=== PATIENT | male | born 1995 | race African-American/Black ===

== ENCOUNTER 2020-04-09 17:42 | Emergency (ER) | payer OTHER ==
[2020-04-09 17:49] VITALS: BP 130/68
--- NOTE | 2020-04-09 18:07 | ED Physician Documentation ---
History of Present Illness - Stated complaint Stated Complaint: FEVER - Chief complaint Chief Complaint: Fever - History obtained from History obtained from: Patient - History of Present Illness Timing: Prior to arrival - Additonal information Additional information: This is a well-appearing and well feeling 24-year-old gentleman that presents to the emergency department for evaluation of reported fever. He is in the [place] and when he was reporting to duty this afternoon a routine temperature therefore his chief requested he come to the ER to get a COVID test. Patient denies feeling ill. He has no cough, congestion, sore throat, runny nose, loss of taste or smell, no abdominal pain, no nausea, vomiting, headache, back pain, rash. 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 When he returned he has been out and about shopping and sometimes going to restaurants but reports that he always wears a mask. Showed him to be 38 degrees. He attempted to follow-up with [facility] but they were closed. Review of Systems Constitutional: reports: Reviewed and negative Eyes: reports: Reviewed and negative Ears: reports: Reviewed and negative Nose: reports: Reviewed and negative Throat: reports: Reviewed and negative Cardiac: reports: Reviewed and negative Respiratory: reports: Reviewed and negative GI: reports: Reviewed and negative : reports: Reviewed and negative Skin: reports: Reviewed and negative Musculoskeletal: reports: Reviewed and negative Neurologic: reports: Reviewed and negative Psychiatric: reports: Reviewed and negative Endocrine: reports: Reviewed and negative PD PAST MEDICAL HISTORY - Present Medications Home Medications: Ambulatory Orders Medication Instructions Recorded Confirmed No Known Home Medications 04/09/20 04/09/20 - Allergies Allergies/Adverse Reactions: Allergies Allergy/AdvReac Type Severity Reaction Status Date / Time No Known Drug Allergies Allergy Verified 04/09/20 17:44 PD ED PE NORMAL - General General: Alert and oriented X 3, No acute distress - HEENT HEENT: PERRL - Neck Neck: Supple, no meningeal sign - Cardiac Cardiac: RRR, No murmur - Respiratory Respiratory: Clear bilaterally - Abdomen Abdomen: Normal bowel sounds, Soft, Non tender, Non distended - Derm Derm: Warm and dry - Extremities Extremities: No deformity - Neuro Neuro: Alert and oriented X 3 Results - Vitals Vitals: Vital Signs - 24 hr 04/09/20 17:45 Temperature 37.1 C Heart Rate 90 Respiratory 16 Rate Blood Pressure 130/68 O2 Saturation 100 Oxygen O2 Source Room air PD MEDICAL DECISION MAKING - ED course Complexity details: considered differential, d/w patient ED course: 24-year-old male presents to the emergency department for evaluation of fever measured at 38 C when he is reporting for duty this evening on [employer] base. He has no complaints otherwise and is unremarkable in appearance and exam. We will complete COVID-19 screening. Patient is advised to remain in quarantine until the results are known. Departure - Departure Disposition: 01 Home, Self Care Clinical Impression: Encounter for screening laboratory testing for COVID-19 virus Condition: Stable Record reviewed to determine appropriate education?: Yes Comments: We have completed COVID-19 screening on you today. It may take 48 hours until we know the results. We will not call you unless the results are positive. You can sign up online through [employer] to review your results if you would like. You must remain in quarantine until your results are known. Most people that develop COVID 19 infection will heal well. The only reason to return to the emergency department is if your symptoms are life-threatening and cannot be managed well at home
== END 2020-04-09 18:15 | disposition home or self-care (01) ==
LOC: ED 17:42
DX: R50.9 Fever, unspecified (principal); Z20.828 Contact with and (suspected) exposure to other viral communicable diseases
CPT/HCPCS: 99281; 99283

== ENCOUNTER 2021-07-27 17:52 | Emergency (ER) | payer OTHER ==
[2021-07-27 18:06] VITALS: BP 131/82
[2021-07-27 18:25] LABS: RAPID STREP SCREEN Negative (Negative)
--- NOTE | 2021-07-27 18:38 | ED Physician Documentation ---
History of Present Illness - Stated complaint Stated Complaint: SORE THROAT/HEADACHE/CHILLS - Chief complaint Chief Complaint: Resp - History obtained from History obtained from: Patient - Additonal information Additional information: DaysPatient comes emergency department chief complaint of sore throat and nasal congestion is been going on for the last. Patient states that he has a sharp pain in his lower throat hurts when he swallows, especially cold liquids. No fevers or chills. Patient states a bunch of his coworkers had similar symptoms. No other complaints at this time. Patient is vaccinated for COVID. Review of Systems Ten Systems: 10 systems reviewed and negative Constitutional: reports: Myalgias Eyes: reports: Reviewed and negative Ears: reports: Reviewed and negative Nose: reports: Rhinorrhea / runny nose, Congestion Throat: reports: Sore throat Cardiac: reports: Reviewed and negative Respiratory: reports: Reviewed and negative GI: reports: Reviewed and negative : reports: Reviewed and negative Skin: reports: Reviewed and negative Musculoskeletal: reports: Reviewed and negative Neurologic: reports: Reviewed and negative Psychiatric: reports: Reviewed and negative Endocrine: reports: Reviewed and negative Immunocompromised: reports: Reviewed and negative PD PAST MEDICAL HISTORY - Past Medical History Past Medical History: No - Past Surgical History Past Surgical History: No - Present Medications Home Medications: Ambulatory Orders Medication Instructions Recorded Confirmed No Known Home Medications 04/09/20 07/27/21 - Allergies Allergies/Adverse Reactions: Allergies Allergy/AdvReac Type Severity Reaction Status Date / Time No Known Drug Allergies Allergy Verified 07/27/21 18:06 - Social History Does the pt smoke?: No Smoking Status: Never smoker Does the pt drink ETOH?: Yes Does the pt have substance abuse?: No - Immunizations Immunizations are current?: Yes - POLST Patient has POLST: No PD ED PE NORMAL - Vitals Vital signs reviewed: Yes - General General: Alert and oriented X 3, No acute distress, Well developed/nourished - HEENT HEENT: Atraumatic, PERRL, EOMI, Moist mucous membranes, Pharynx benign - Neck Neck: Other (Mild bilateral anterior cervical lymphadenopathy.) - Cardiac Cardiac: RRR, No murmur, Strong equal pulses - Respiratory Respiratory: No respiratory distress, Clear bilaterally - Abdomen Abdomen: Soft, Non tender, Non distended - Derm Derm: Normal color, Warm and dry, No rash - Extremities Extremities: No deformity, No edema - Neuro Neuro: Alert and oriented X 3, weatherization specialist 2-12 intact, Normal speech - Psych Psych: Normal mood, Normal affect Results - Vitals Vitals: Vital Signs - 24 hr 07/27/21 18:02 Temperature 37.4 C Heart Rate 98 Respiratory 18 Rate Blood Pressure 131/82 H O2 Saturation 98 Oxygen O2 Source Room air - Labs Labs: Laboratory Tests 07/27/21 18:10 Group A Strep Rapid Negative PD MEDICAL DECISION MAKING - ED course Complexity details: reviewed results, re-evaluated patient, considered differential, d/w patient ED course: Patient was worked up with strep test and COVID test. Strep was negative. Patient was advised that he most likely has a viral upper respiratory infection and pharyngitis. He is advised to quarantine until his COVID test comes back. He has been given a work note for couple days and we have discussed symptomatic treatment. Departure - Departure Disposition: Home, Self Care Clinical Impression: Upper respiratory infection Qualifiers: URI type: unspecified viral URI Qualified Code(s): J06.9 - Acute upper respiratory infection, unspecified Pharyngitis Qualifiers: Pharyngitis/tonsillitis etiology: unspecified etiology Qualified Code(s): J02.9 - Acute pharyngitis, unspecified Condition: Stable Instructions: ED Viral Syndrome, ED Pharyngitis Viral Comments: Your strep test is negative. You most likely have one of the many viruses that are going around and causing upper respiratory symptoms right now. You have a COVID test pending at this time. We will call you if you have a positive test; however, if you have a negative test, we do not call this back. As such, the best way to get your negative results is to go to our hospital website at [email or web address], click on the "[email or web address]" tab and sign up for the patient portal. Until you have confirmation of negative COVID test, please quarantine at home. Forms: Activity restrictions
== END 2021-07-27 18:44 | disposition home or self-care (01) ==
LOC: ED 17:52
DX: U07.1 COVID-19 (principal); J06.9 Acute upper respiratory infection, unspecified; J02.9 Acute pharyngitis, unspecified
CPT/HCPCS: 87070; 87430; 99282; 99283

== ENCOUNTER 2022-06-01 08:57 | Outpatient (CLI) | payer OTHER ==
--- NOTE | 2022-06-01 11:19 | XRAY Report ---
PROCEDURE: Finger(s) RT INDICATIONS: R THUMB PX TECHNIQUE: AP hand, 3 views of the first finger(s) acquired. COMPARISON: None FINDINGS: Bones: No fractures or dislocations. No suspicious bony lesions. Soft tissues: No suspicious soft tissue calcifications. IMPRESSION: No displaced fracture is identified. If there is high concern for occult injury, consider repeat radi ography or cross-sectional imaging. Reviewed by: Efe Umaña MD on 06/01/2022 11:18 AM [facility] Approved by: Efe Umaña MD on 06/01/2022 11:18 AM PST Station ID: [id number]
== END 2022-06-01 08:58 | disposition home or self-care (01) ==
LOC: DI.N 08:57
PROVIDERS: ATTEND Nurse Practitioner
DX: S69.91XA Unspecified injury of right wrist, hand and finger(s), initial encounter (principal)

== ENCOUNTER 2023-02-12 13:20 | Outpatient (CLI) | payer OTHER ==
--- NOTE | 2023-02-12 14:00 | Sleep Patient Instructions ---
Sleep Center Visit Summary - Patient Visit Information Reason for Visit: Initial consult for evaluation of sleep disordered breathing and other sleep issues. - Patient Instructions Instructions Attached: Sleep Study, Sleep Clinic Visit, Sleep Study Home Monitor Additional Instructions: You will be completing a sleep study, either an in-lab polysomnography (PSG) or home sleep study (HST). You will follow-up in the sleep care office after the sleep study is completed to hear the results and talk about therapy, if needed. You will be called by our office staff to schedule this appointment, but you may contact us with any questions. - Clinic Information Contact: [facility] [address] [place] [address] [email or web address] T: [phone]
--- NOTE | 2023-02-12 14:05 | SLEEP CARE CONSULTATION ---
Information from patient questionnaire entered by Preeti Simeon. I have reviewed and concur with the information entered by Preeti Simeon. This document represents the service I personally performed and the decisions made by me, Jackelin Montes De Oca ARNP. History of Present Illness Service Date and Time: 02/12/2023 1320 Reason for Visit: New patient Chief Complaint: reports: Snoring, Observed pauses in breathing, Fatigue, Frequent awakenings at night Date of Onset: 3+YRS Usual bedtime: 10PM-3AM Time it takes to fall asleep: VARIES; work schedule changes when he gets off; 10 PM to 3 AM Snores at night: Yes Observed to quit breathing while asleep: Yes Sleeps alone due to snoring: No Number of times waking at night: 1-2 Reasons for waking at night: reports: Snoring, Gasping for air, Pain, Bathroom. denies: Choking Toss, Turn, or Twitch while sleeping: Yes Recalls having dreams: No Usually gets out of bed at: VARIES; 9-10 AM Feels refreshed in the morning: No Morning headache: No Sleepy or fatigued during the day: Yes Ever fallen asleep while driving: No Takes day naps: Yes (nap at work if able, 30-60 mins; fall asleep in front of TV, 2 hours someti) Dreams during day naps: No Prior sleep studies: No Additional HPI information: I had the pleasure of seeing SAL BANGURA today regarding the possibility of him having a sleep disorder. His current complaints are fatigue, frequent night awakenings, observed pauses in breathing and snoring. He has been in therapy and was talking to his therapist thought he may have sleep apnea. He was referred by his PCP. He has loud snoring and has woke himself up. His has also told him that he snores loudly and that he will stop breathing as well. He has woke himself up gasping for air but the last time was about a month ago. 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 He does not wake up feeling refreshed usually and is tired through the day. He will take a nap at work during his break if able, sometimes as much as an hour. He will also fall asleep when watching TV at home and sitting on his comfortable couch. - Parasomnia Symptoms Ever been unable to move upon waking from sleep: Yes (first time in 2019, after very long shift at work; occ since then) Walks in sleep: No Talks in sleep: No Ever acted out dreams in sleep: No Ever felt weak in the knees when startled or emotional: No Bothered by creepy, crawly, restless sensations in legs: No Problems with memory or concentration: Yes (both) Subjective Initial Organ Sleepiness Scale score: 17 (02/12/23) Past Medical History Past Medical History: reports: Anxiety (post adjustment disorder), Depression, Other Social History The patient's occupation is a AM. Patient is and lives in [place]. Have you smoked in the past 12 months: No Cigarettes per day (20/pack): 10 Years of smokin (NOW VAPES) Quit date: 2018 Smoking Pack Years: 2.0 Alcohol use: Yes Alcohol amount and frequency: 4-5 GLASSES EVERY WEEKEND Caffeine use: Yes Caffeine amount and frequency: 3-4 TIMES EVERYDAY IN THE AM 3-4 LATER IN THE DAY Family History Family history of sleep disordered breathing: Yes Family Hx Sleep Apnea: Mother: Snoring Allergies and Home Medications Known drug allergies: No Drug allergies reviewed: Yes Home medication list reviewed: Yes (no daily medications; in therapy for anx/dep) Allergy and home medication list: Allergies No Known Drug Allergies Allergy (Verified 02/11/23 14:12) Review of Systems Weight gain over past 5 years: 30, up on weight right now Weight loss over past 5 years: 30 Cardiovascular: denies: high blood pressure Respiratory: denies: shortness of breath Gastrointestinal: denies: heartburn Neurological: reports: head trauma (as a kid, 2 concussions). denies: headaches Psychiatric: reports: anxiety, depression Ear/Nose/Throat: reports: wisdom teeth removed. denies: injury to nose, tonsillectomy Musculoskeletal: reports: joint pain, back pain Physical Exam Vital signs obtained and entered by: PREETI Anglin MA Blood Pressure: 136/80 (LEFT ARM) Cuff size: regular Heart Rate: 86 O2 Saturation: 98 Height: 5 ft 7 in Weight: 220 lb 6.4 oz Body Mass Index: 34.4 BMI Classification: Obese Neck circumference: 17 Mouth and throat: narrow oropharynx Soft palate: long Hard palate: normal Uvula: normal Uvula visualization: 25% Mallampati Class III Tongue: enlarged in size with teeth todd on lateral edges Tonsils: 1+ Neck: normal w/o lymphadenopathy or thyromegaly Heart: regular rate and rhythm Lungs: clear bilaterally Impression and Plan 1. Suspected Obstructive Sleep Apnea-Hypopnea Syndrome, as suggested by a history of loud and irregular snoring, observed cessation of breath while asleep, gasping or choking in sleep, frequent awakening during the night, unrefreshed sleep, cognitive impairment, and excessive daytime sleepiness. Narrow oropharynx and obesity are common predisposing factors for obstructive sleep apnea-hypopnea syndrome. I recommend proceeding to polysomnography to confirm the diagnosis and to assess severity. If the patient has significant sleep disordered breathing, a manual CPAP titration study will also be performed to find the optimal treatment pressure. I informed the patient of what the sleep studies involve and after some discussion, obtained agreement to proceed. The pathophysiology of obstructive sleep apnea-hypopnea syndrome was discussed with the patient and health risks of cardiovascular and cerebrovascular disease if not treated. Risks of drowsy driving discussed in detail and patient advised to avoid long distance driving and to pulling unit floorhand at the first sign of drowsiness. Patient agreed to plan. * Schedule polysomnography * Avoid long distance driving or driving when feeling sleepy. * Avoid alcohol, sedative and muscle relaxant around bedtime. * Attempt to lose weight. * Review instructions provided by trained office staff on how to prepare for the sleep study. * Return for follow-up after sleep study completed. Counseling Topics: Weight loss health impact Visit Type: In Office Time Spent with Patient (minutes): 32 Provider Statement: I spent 100% of the Face to Face Visit with the patient with greater than 50% spent counseling the patient and coordination of care.
[2023-02-12 14:07] VITALS: BP 136/80
== END 2023-02-12 13:21 | disposition home or self-care (01) ==
LOC: SC 13:20
PROVIDERS: ATTEND Nurse Practitioner Family
DX: R06.83 Snoring (principal); G47.8 Other sleep disorders; R06.81 Apnea, not elsewhere classified; G47.10 Hypersomnia, unspecified; R53.83 Other fatigue; F32.A Depression, unspecified; E66.9 Obesity, unspecified; Z68.34 Body mass index [BMI] 34.0-34.9, adult; F17.290 Nicotine dependence, other tobacco product, uncomplicated
CPT/HCPCS: 99203; 99212

== ENCOUNTER 2023-03-26 08:46 | Outpatient (CLI) | payer OTHER | END 2023-03-26 08:47 | disposition home or self-care (01) | LOC: SC 08:46 | PROVIDERS: ATTEND Nurse Practitioner Family | DX: G47.33 Obstructive sleep apnea (adult) (pediatric) (principal); R09.02 Hypoxemia; E66.9 Obesity, unspecified; Z68.34 Body mass index [BMI] 34.0-34.9, adult | CPT/HCPCS: 95806 ==

== ENCOUNTER 2023-04-27 09:04 | Outpatient (CLI) | payer OTHER ==
--- NOTE | 2023-04-27 09:52 | Sleep Patient Instructions ---
Sleep Center Visit Summary - Patient Visit Information Reason for Visit: Sleep Study Followup - Patient Instructions Instructions Attached: CPAP Dc, CPAP Additional Instructions: You are being started on CPAP therapy with pressure setting at 4-15 cmH2O. You will need to call the sleep care office to set up your follow up once you have your APAP machine and we will schedule a visit to check compliance and response to therapy at that time. You may call the office with any concerns about pressure feeling too low or too much for adjustment, if needed. You should contact DME supplier for any questions or concerns about mask or equipment. Please call office to schedule a follow up appointment in the sleep care office one month after obtaining new device. - Clinic Information Contact: [facility] [address] [place] [address] [email or web address] T: [phone]
--- NOTE | 2023-04-27 09:55 | SLEEP CARE CONSULTATION ---
Information from patient questionnaire entered by Preeti Simeon. I have reviewed and concur with the information entered by Preeti Simeon. This document represents the service I personally performed and the decisions made by me, Jackelin Montes De Oca ARNP. History of Present Illness Service Date and Time: 04/27/2023903 Initial Lamar Sleepiness Scale score: 17 (02/12/23) Current Lamar Sleepiness Scale score: 20 Additional HPI information: SAL BANGURA returns for follow up and results of the recently performed home sleep study. Her sleep study showed mild obstructive sleep apnea with an average AHI of 6.2 and john oxygen saturation of 89%. I explained the pathophysiology behind obstructive sleep apnea. We then spent quite a bit of time discussing different treatment options. For mild obstructive sleep apnea, surgery and oral appliance are alternatives to nasal CPAP therapy but in moderate or severe cases, nasal CPAP is the most effective and reliable treatment. Because apnea is primarily in supine position, then positional management therapy could be effective. Methods discussed such as positioning with pillows, using a T-shirt with tennis balls in the back or commercial products that have a pillow format on back to prevent supine sleep. I reviewed the impact of weight changes on sleep apnea and strongly recommended losing weight. After some discussion, the patient opted to go with the nasal CPAP therapy. Nasal autoCPAP set at 4-15 cmH20 will be ordered with rationale explained. A manual titration study will be ordered if unable to find optimal pressure with office adjustments. I explained how CPAP machine works and what to expect when using the machine. Using CPAP every night in order to get used to it was emphasized. Patient advised to put CPAP mask on before getting into bed so as not to fall asleep without CPAP. To assist acclimation to CPAP use, it could also be used for a short time during day while reading or watching TV. The patient was instructed to call the CPAP supplier to discuss any mechanical problem that may occur. If the mask given is uncomfortable or is difficult to keep on through the night even with adjustment, contact the CPAP supplier as many will replace with ano ther mask style if notified before 30 days. If snoring or perceives is not getting enough air or too much air from the machine, notify this office. Patient counseled not drink alcohol less than 4 hours before bedtime as it can increase snoring and apnea. Patient was cautioned about risks of drowsy driving until sleepiness symptoms resolve. Patient denies drowsy driving. Sleep Study - Results Type of Sleep Study: Home sleep study (COMPLETED 03/26/23) Prior sleep studies: No Polysomnography/Home Sleep Study results: Physician Impression: The quality of the study is good. The length of the study is adequate (> 240 minutes). Please also see the tabulated and graphic data. 1. Obstructive Sleep Apnea-Hypopnea (ICD-10 G47.33), mild, with an AHI of 6.2/hr and john SaO2 of 89%. During the study, the patient had 7 apneas (7 obstructive, 0 central, 0 mixed) and 30 hypopneas. The longest episode lasted 103.5 seconds. The respiratory events occurred almost exclusively during supine sleep (supine AHI was 9.1 and non-supine, 2.36). 2. Hypoxemia (ICD-10 R09.02), minimal, with the lowest oxygen saturation of 89 % and 0.1 minutes with SaO2 under 90%. Baseline oxygen saturation was normal (Average oxygen saturation was 94%). Allergies and Home Medications Known drug allergies: No Drug allergies reviewed: Yes Home medication list reviewed: Yes (no changes) Allergy and home medication list: Allergies No Known Drug Allergies Allergy (Verified 04/26/23 08:53) Review of Systems Review of systems same as previous: Yes (no changes) Physical Exam Vital signs obtained and entered by: Jackelin Liz NP Blood Pressure: 144/107 (nervous today) Cuff size: wrist Heart Rate: 87 O2 Saturation: 99 Height: 5 ft 7 in Weight: 223 lb 3.2 oz Body Mass Index: 34.9 BMI Classification: Obese Impression and Plan 1. Obstructive Sleep Apnea-Hypopnea Syndrome, mild, with lowest oxygen saturation of 89%. Obviously this is the cause of the patients symptoms of unrefreshed sleep, and excessive daytime sleepiness. Positive pressure therapy could benefit anxiety and depression. As mentioned above, the patient will be started on nasal autoCPAP therapy with pressure set at 4-15 cmH2O. A manual titration study will be completed if unable to find optimal treatment pressure with office adjustments. Compliance guidelines also reviewed. A copy of compliance guidelines will be given for reference at check out. Because the apnea is more severe supine, I instructed to avoid sleeping supine using pillow positioning until able to start CPAP use. 2. Obesity, unspecified. Currently patients BMI is 34.9. Obesity increases the risk of apnea, CPAP pressure requirements and overall health risks especially cardiovascular and diabetes. Thus patient is advised to lose weight. * Nasal auto CPAP therapy, pressure at 4-15 cm H2O. * Attempt to lose weight. * Avoid alcohol consumption near bedtime. * Avoid supine sleep until using CPAP. * The patient is again cautioned about driving until sleepiness completely resolves. * Return one month after CPAP obtained. I will assess response to therapy and compliance at that time. Counseling Topics: Weight loss health impact Prescriptions: Auto CPAP Visit Type: In Office Time Spent with Patient (minutes): 22 Provider Statement: I spent 100% of the Face to Face Visit with the patient with greater than 50% spent counseling the patient and coordination of care.
[2023-04-27 10:03] VITALS: BP 144/107; O2SAT 99
== END 2023-04-27 09:05 | disposition home or self-care (01) ==
LOC: SC 09:04
PROVIDERS: ATTEND Nurse Practitioner Family
DX: G47.33 Obstructive sleep apnea (adult) (pediatric) (principal); E66.9 Obesity, unspecified; Z68.34 Body mass index [BMI] 34.0-34.9, adult
CPT/HCPCS: 99212; 99213

== ENCOUNTER 2023-07-13 15:03 | Outpatient (CLI) | payer OTHER ==
--- NOTE | 2023-07-13 15:45 | Sleep Patient Instructions ---
Sleep Center Visit Summary - Patient Visit Information Reason for Visit: First Compliance with CPAP therapy - Patient Instructions Additional Instructions: You were here for follow up of CPAP therapy. You will be continued on CPAP therapy with pressure at 8-12 cmH2O. You should follow up with sleep care in 1-2 months. You may contact us sooner for any questions or concerns. - Clinic Information Contact: Located within [facility] [address] [place] [address] [email or web address] T: [phone]
--- NOTE | 2023-07-13 15:48 | SLEEP CARE CONSULTATION ---
Information from patient questionnaire entered by Preeti Simeon. I have reviewed and concur with the information entered by Preeti Simeon. This document represents the service I personally performed and the decisions made by , Jackelin Montes De Oca ARNP. History of Present Illness Service Date and Time: 07/13/2023 1503 Previous diagnosis: Mild, Obstructive Sleep Apnea-Hypopnea Syndrome AHI: 6.2 Reason for follow up: first compliance Equipment type: CPAP (RESMED Airsense 05/2023) Equipment obtained from: [employer] (getting supplies) Mask style: Nasal Mask brand: [employer] ([place], medium cushion) Backup mask available: No (will keep old mask when replaced) Last cushion change: over a month Prior sleep studies: No Type of Sleep Study: Home sleep study (COMPLETED 03/26/23) HPI additional information: SAL BANGURA was diagnosed to have mild, AHI 6.2, obstructive sleep apnea- hypopnea syndrome and returned today for CPAP therapy first compliance follow- up. Sleep Study - Results Type of Sleep Study: Home sleep study (COMPLETED 03/26/23) Prior sleep studies: No CPAP Compliance Data - Data Reviewed with Patient Average duration of nightly device use: 6 HRS 28 MINS Compliance rate %: 100 (05/12/23-06/10/23; 30 days used) Current pressure setting (cmH2O): 8-12 Average residual AHI: 0.7 Central apnea: 0.1 Obstructive apnea: 0.3 Average large leak: 1.2 Subjective Patient concerns: reports: air blowing in eyes, mask leak noise. denies: aerophagia, mask discomfort, condensation in mask/hose, nasal congestion, dry mouth, nose, throat, epistaxis Observed to snore while using device: No Current pressure setting perceived as: comfortable On therapy, patient: reports: sleeping better, awakening more refreshed, being more awake and alert during the day, more rested overall. denies: drowsiness while driving Initial [place] Sleepiness Scale score: 17 (02/12/23) Current [place] Sleepiness Scale score: 10 (07/13/23) Allergies and Home Medications Known drug allergies: No Drug allergies reviewed: Yes Home medication list reviewed: Yes (no changes) Allergy and home medication list: Allergies No Known Drug Allergies Allergy (Verified 12/29/23 09:44) Review of Systems Review of systems same as previous: Yes (NO CHANGE) Physical Exam Vital signs obtained and entered by: PREETI Anglin MA Blood Pressure: 137/90 (RIGHT ARM) Cuff size: regular Heart Rate: 88 O2 Saturation: 98 Height: 5 ft 7 in Weight: 231 lb 3.2 oz Body Mass Index: 36.2 BMI Classification: Obese Impression and Plan 1. Obstructive Sleep Apnea-Hypopnea Syndrome, mild, with good treatment compliance and good apnea control. On CPAP therapy, the patient has better sleep quality and is more rested overall. He likes his mask but he still gets a leak into his eyes and leak noises occasionally. He does not have a replacement cushion so I encouraged him to reach out to his DME supplier to get replacement cushions. Patient has significant improvement of their sleep apnea and is satisfied with current CPAP therapy. Patient's apnea severity and rationale for treatment to reduce apnea, improve sleep quality and reduce cardiovascular and cerebrovascular events was reviewed. I also reviewed the benefit of consistent device use of CPAP for depression/anxiety. 2. Obesity, unspecified. Currently patients BMI is 36.2. Obesity increases the risk of apnea, CPAP pressure requirements and overall health risks especially cardiovascular and diabetes. Thus patient is advised to lose weight. * Continue auto CPAP pressure at 8-12 cmH2O * Notify me if snoring with mask or feeling that the pressure is too much or too little * Attempt to lose weight * Call this office if any problems using CPAP * Return for follow up in 1-2 months, or sooner if concerns arise Counseling Topics: Spare mask, Weight loss health impact Follow up with Sleep Care in: 1-2 months Visit Type: In Office Time Spent with Patient (minutes): 20 Provider Statement: I spent 100% of the Face to Face Visit with the patient with greater than 50% spent counseling the patient and coordination of care.
[2023-07-13 15:55] VITALS: BP 137/90; O2SAT 98
== END 2023-07-13 15:04 | disposition home or self-care (01) ==
LOC: SC 15:03
PROVIDERS: ATTEND Nurse Practitioner Family
DX: G47.33 Obstructive sleep apnea (adult) (pediatric) (principal); E66.9 Obesity, unspecified; Z68.36 Body mass index [BMI] 36.0-36.9, adult
CPT/HCPCS: 99212; 99213

== ENCOUNTER 2023-09-10 13:00 | Outpatient (CLI) | payer OTHER ==
--- NOTE | 2023-09-10 13:18 | Sleep Patient Instructions ---
Sleep Center Visit Summary - Patient Visit Information Reason for Visit: 2-month follow-up - Patient Instructions Additional Instructions: You were here for follow up of CPAP therapy. You will be continued on CPAP therapy with pressure at 8-12 cmH2O. You should follow up with sleep care in 6 months. You may contact us sooner for any questions or concerns. - Clinic Information Contact: [facility] [address] [place] [address] [email or web address] T: [phone]
--- NOTE | 2023-09-10 13:21 | SLEEP CARE CONSULTATION ---
Information from patient questionnaire entered by Preeti Simeon. I have reviewed and concur with the information entered by Preeti Simeon. This document represents the service I personally performed and the decisions made by , Jackelin Montes De Oca ARNP. History of Present Illness Service Date and Time: 09/10/2023 1300 Previous diagnosis: Mild, Obstructive Sleep Apnea-Hypopnea Syndrome AHI: 6.2 Reason for follow up: other (2 MONTH F/U) Equipment type: CPAP (RESMED AIRSENSE 10 AUTOSET SETUP DATE 05/12/23) Equipment obtained from: [employer] (getting supplies) Mask style: Nasal pillows Backup mask available: Yes Last cushion change: 2 weeks Prior sleep studies: No Type of Sleep Study: Home sleep study (COMPLETED 03/26/23) HPI additional information: SAL BANGURA was diagnosed to have mild, AHI 6.2, obstructive sleep apnea- hypopnea syndrome and returned today for CPAP therapy two month follow-up. Sleep Study - Results Type of Sleep Study: Home sleep study (COMPLETED 03/26/23) Prior sleep studies: No CPAP Compliance Data - Data Reviewed with Patient Average duration of nightly device use: 6 HRS 30 MINS Compliance rate %: 97 (07/11/23-09/08/23; 60/60 days used) Current pressure setting (cmH2O): 8-12 Average residual AHI: 0.2 Central apnea: 0 Obstructive apnea: 0.1 Hypopnea: 0 Average large leak: 4 L/min Subjective Patient concerns: denies: aerophagia, mask discomfort, air blowing in eyes, mask leak noise, condensation in mask/hose, nasal congestion, dry mouth, nose, throat, epistaxis Observed to snore while using device: No Current pressure setting perceived as: comfortable On therapy, patient: reports: sleeping better, awakening more refreshed, being more awake and alert during the day, more rested overall. denies: drowsiness while driving Initial [place] Sleepiness Scale score: 17 (02/12/23) Current [place] Sleepiness Scale score: 6 (09/10/23) Allergies and Home Medications Known drug allergies: No Drug allergies reviewed: Yes Home medication list reviewed: Yes (no changes) Allergy and home medication list: Allergies No Known Drug Allergies Allergy (Verified 09/08/23 11:54) Review of Systems Review of systems same as previous: Yes (NO CHANGE) Physical Exam Vital signs obtained and entered by: PREETI Anglin MA Blood Pressure: 94/71 (RIGHT ARM) Cuff size: regular Heart Rate: 86 O2 Saturation: 97 Height: 5 ft 7 in Weight: 231 lb 12.8 oz Body Mass Index: 36.3 BMI Classification: Obese Impression and Plan 1. Obstructive Sleep Apnea-Hypopnea Syndrome, mild, with good treatment compliance and good apnea control. On CPAP therapy, the patient has better sleep quality and is more rested overall. Patient will be transitioning out of the [place] into alf in the next month. He is working with [employer] and [employer] to determine coverage after he is out of the [place]. Patient has significant improvement of their sleep apnea and is satisfied with current CPAP therapy. Patient denies problems with oral dryness, nasal congestion, epistaxis, skin irritation or aerophagia. Patient's apnea severity and rationale for treatment to reduce apnea, improve sleep quality and reduce cardiovascular and cerebrovascular events was reviewed. I also reviewed the benefit of consistent device use of CPAP for depression/anxiety. 2. Obesity, unspecified. Currently patients BMI is 36.3. Obesity increases the risk of apnea, CPAP pressure requirements and overall health risks especially cardiovascular and diabetes. Thus patient is advised to lose weight. * Continue auto CPAP pressure at 8-12 cmH2O * Notify me if snoring with mask or feeling that the pressure is too much or too little * Attempt to lose weight * Call this office if any problems using CPAP * Return for follow up in 6 months, or sooner if concerns arise Counseling Topics: Spare mask, Weight loss health impact Follow up with Sleep Care in: 6 months Visit Type: In Office Time Spent with Patient (minutes): 20 Provider Statement: I spent 100% of the Face to Face Visit with the patient with greater than 50% spent counseling the patient and coordination of care.
[2023-09-10 13:26] VITALS: BP 94/71; O2SAT 97
== END 2023-09-10 13:01 | disposition home or self-care (01) ==
LOC: SC 13:00
PROVIDERS: ATTEND Nurse Practitioner Family
DX: G47.33 Obstructive sleep apnea (adult) (pediatric) (principal); E66.9 Obesity, unspecified; Z68.36 Body mass index [BMI] 36.0-36.9, adult
CPT/HCPCS: 99212; 99213